=== PATIENT | female | born 1945 | race Caucasian/White ===

== ENCOUNTER 2018-06-23 05:39 | Day surgery (SDC) | payer OTHER ==
[~2018-06-23] VITALS: Ht 152.4 cm; Wt 72.6 kg
--- NOTE | ~2018-06-23 | O ---
[facility] [place] [address] OPERATIVE REPORT Name: DRU DALY Room #: 150-9 [facility] M..#: [id number] Admission: 06/23/18 Attend Phys: Norm Jenkins MD Discharge: Date of : 49 Report #: [id number] THIS REPORT FOR: //name// CC: Dr. Enriqueta Burrell [facility] Dylon Jenkins DATE OF SERVICE: 06/23/2018 DIRECTOR MATERNAL CHILD: None. PREOPERATIVE DIAGNOSIS: Bilateral upper lid ptosis with superior visual field defects both eyes. POSTOPERATIVE DIAGNOSIS: Bilateral upper lid ptosis with superior visual field defects both eyes. OPERATION PERFORMED: Bilateral upper lid functional ptosis repair. DIRECTOR MATERNAL CHILD: None. ANESTHESIA: Local with IV sedation. COMPLICATIONS: None. INDICATIONS FOR PROCEDURE: This patient has bilateral upper lid ptosis with superior visual field loss both eyes. Visual field testing demonstrates dense superior visual defects. Retesting with the upper lid elevated shows an improvement in visual field loss of over 30% and in excess of 12 degrees. The current procedure is being undertaken in order to improve the patient's visual function. Informed consent was obtained to include but not limited to the risk of loss of vision, bleeding, infection, scarring, failure to improve the problem and need for further surgery, such as adjustment of lid height. DESCRIPTION OF PROCEDURE: The patient was taken to the operating room, where 2% Xylocaine with epinephrine mixed with equal parts of 0.75% Marcaine with Wydase was administered transcutaneously to each upper lid. The patient was then prepped and draped in the usual sterile fashion. An upper lid crease incision was then made bilaterally and the dissection was carried down until the orbital septum was identified. The orbital septum was then cleared and the preaponeurotic fat identified. The levator aponeurosis was then disinserted from the anterior surface of the tarsal plate and dissected [address] [address] OPERATIVE REPORT Name: DRU DALY Room #: 150-9 [facility].#: [id number] Admission: 06/23/18 Attend Phys: Norm Jenkins MD Discharge: Date of : 49 Report #: [id number] free in the avascular Leal's muscle plane. The aponeurosis was then advanced and reattached to the anterior surface of the tarsal plate with interrupted mattress 6-0 Novafil sutures on each side, adjusting for height and contour. The redundant aponeurosis was then amputated. The incision was then closed with multiple interrupted 6-0 chromic sutures that were used to recreate an upper lid crease. The skin was closed with a running 6-0 plain gut suture. The wound was then cleaned and dressed with ophthalmic antibiotic ointment followed by a Telfa pad. The patient was transported to the recovery area, having tolerated the procedure well with no anesthesia or operative complications being noted. By: [id number] MD keeley Joshua
[~2018-06-23 05:39] MED LIST: AMITRIPTYLINE H25 M2 PO; ASPIRIN325 PO; ATORVASTATIN CA40 MG PO; CLONAZEPAM 1 MG1 M1 PO; CYMBALTA60 MG PO; FISH OIL 1,2001 EACH PO; HYDROXYZINE HCL50 MG PO; LISINOPRIL10 MG PO; MULTI VITAMIN1 EACH PO; OXCARBAZEPINE150 MG PO; PREVAGEN PO; PROPRANOLOL 1010 MG PO; REMERON 30 MG T30 M1 PO; RISPERDAL0.5 MG PO; SYNTHROID25 MC1 PO; VITAMIN B-121000 MC1 PO; VITAMINC500 PO; ZONISAMIDE 100100 M1 PO
[2018-06-23 10:25] VITALS: BP 99/53
== END 2018-06-23 12:50 | disposition home or self-care (01) ==
LOC: TBA 05:39 → OR 05:39 → TBA 05:40 → OR 10:13
DX: H02.403 Unspecified ptosis of bilateral eyelids (principal); F31.9 Bipolar disorder, unspecified; F41.9 Anxiety disorder, unspecified; I10 Essential (primary) hypertension; E11.9 Type 2 diabetes mellitus without complications; E78.5 Hyperlipidemia, unspecified; K21.9 Gastro-esophageal reflux disease without esophagitis; Z79.899 Other long term (current) drug therapy; Z79.82 Long term (current) use of aspirin; Z79.84 Long term (current) use of oral hypoglycemic drugs; Z87.442 Personal history of urinary calculi; Z98.890 Other specified postprocedural states; Z90.710 Acquired absence of both cervix and uterus; Z96.651 Presence of right artificial knee joint; Z98.42 Cataract extraction status, left eye; Z98.41 Cataract extraction status, right eye
CPT/HCPCS: 50010; 50101; 62110; 62850; 70005

== ENCOUNTER 2019-05-11 05:38 | Day surgery (SDC) | payer OTHER ==
[~2019-05-11] VITALS: Ht 152.4 cm; Wt 74.8 kg
[~2019-05-11 05:38] MED LIST changes: +IRON18 M1 PO; +NORCO 5-325 TA1 EAC1 PO
[2019-05-11 07:30] VITALS: BP 109/67
--- NOTE | 2019-05-15 06:15 | O ---
[facility] [place] [address] OPERATIVE REPORT Name: DRU DALY Room #: DEP [facility].#: [id number] Admission: 05/11/19 ������������������ Attend Phys: Norm Jenkins MD Discharge: 05/11/19 ������������������ Date of : 49 Report #: [id number] THIS REPORT FOR: //name// CC: Enriqueta [facility] Norm Jenkins DATE OF SERVICE: 05/11/2019 SURGEON: Norm Jenkins M.D. ANIMAL LABORATORY HELPER: None. PREOPERATIVE DIAGNOSIS: Bilateral functional upper lid blepharoplasty. POSTOPERATIVE DIAGNOSIS: Bilateral functional upper lid blepharoplasty. OPERATION PERFORMED: Bilateral upper lid functional blepharoplasty. ANESTHESIA: Local with IV sedation. COMPLICATIONS: None. INDICATIONS FOR SURGERY: This patient has acquired upper lid dermatochalasia with superior visual field loss both eyes because of excessive upper lid tissues to include skin and fat. Visual field testing demonstrates dense superior visual defects. Retesting with the upper lid elevated shows an improvement in visual field loss of over 30% and in excess of 12 degrees. The current procedures are undertaken in order to improve the patient's visual function. Informed consent was obtained to include but not limited to the loss of vision, bleeding, infection, scarring, failure to improve the problem and need for further surgery. DESCRIPTION OF OPERATION: The patient was taken to the operating room, where 2% Xylocaine with epinephrine mixed with equal parts of 0.75% Marcaine with Wydase was administered transcutaneously to each upper lid. The patient was then prepped and draped in the usual sterile fashion and a skin-marking pen was then utilized to outline an upper lid crease that was symmetrical on each side. Graefe forceps were then used to quantitate the redundant upper lid skin and it was similarly outlined. The incisions were then made with Rei scissors and a skin-muscle flap removed from each side with high-temp cautery. Hemostasis was achieved with the monopolar cautery as it was throughout the case. The orbital septum was then identified and the central and medial fat pads were inspected. The redundant soft tissue was then sculpted with the monopolar [address] [address] OPERATIVE REPORT Name: DRU DALY DAVID Room #: DEP [facility] M..#: [id number] Admission: 05/11/19 ������������������ Attend Phys: Norm Jenkins MD Discharge: 05/11/19 ������������������ Date of : 49 Report #: [id number] cautery. The upper lid crease was then reformed with tightening of the pretarsal orbicularis muscle. The upper lid crease was then further reformed with multiple interrupted 6-0 chromic sutures. The skin was then closed with a running 6-0 plain gut suture. The wound was then cleaned and dressed with ophthalmic antibiotic ointment and a nonstick dressing. The patient was transported to the recovery area, where cold compresses were applied, having tolerated the procedure well with no anesthetic or operative complications being noted. ��������������������������������������������� <ELECTRONICALLY SIGNED> ���������������������������������������� By: Norm Jenkins MD ��������������������������������������������� 05/15/19 0615 [id number] Norm Jenkins MD /nt
== END 2019-05-11 10:00 | disposition home or self-care (01) ==
LOC: TBA 05:38 → OR 05:38 → TBA 05:39 → OR 07:51
DX: H02.834 Dermatochalasis of left upper eyelid (principal); H02.831 Dermatochalasis of right upper eyelid; H53.40 Unspecified visual field defects; F31.9 Bipolar disorder, unspecified; F41.9 Anxiety disorder, unspecified; I10 Essential (primary) hypertension; E78.5 Hyperlipidemia, unspecified; I48.91 Unspecified atrial fibrillation; D64.9 Anemia, unspecified; K21.9 Gastro-esophageal reflux disease without esophagitis; E03.9 Hypothyroidism, unspecified; Z98.890 Other specified postprocedural states; Z79.899 Other long term (current) drug therapy; Z79.82 Long term (current) use of aspirin
CPT/HCPCS: 50010; 50101; 50386; 50398; 51636; 56531; 62110; 62850; 70005